=== PATIENT | female | born 1945 | race Caucasian/White ===

== ENCOUNTER 2021-11-05 14:26 | Outpatient (CLI) | payer MEDICARE | END 2021-11-05 14:27 | disposition home or self-care (01) | LOC: RAD-FRANK 14:26 | PROVIDERS: ATTEND Nurse Practitioner Family | DX: R50.9 Fever, unspecified (principal) | CPT/HCPCS: 71046 ==

== ENCOUNTER → 2021-11-20 | Day surgery (SDC) | payer MEDICARE | END | disposition home or self-care (01) | LOC: ULT 13:37 | PROVIDERS: ATTEND Podiatrist Foot & Ankle Surgery | DX: M79.672 Pain in left foot (principal) | CPT/HCPCS: 93922 ==

== ENCOUNTER 2023-02-03 15:28 | Outpatient (CLI) | payer MEDICARE | END 2023-02-03 15:29 | disposition home or self-care (01) | LOC: RAD-FRANK 15:28 | PROVIDERS: ATTEND Nurse Practitioner Family | DX: M79.642 Pain in left hand (principal) ==